=== PATIENT | male | born 1975 ===

== ENCOUNTER 2020-07-28 18:25 | Emergency (ER) | payer SELFPAY ==
[2020-07-28] MEDS ORDERED: Ibuprofen 600 MG Tab PO ONE (18:53)
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
== END 2020-07-28 19:33 | disposition home or self-care (01) ==
LOC: JP.ED 18:25
DX: S93.491A Sprain of other ligament of right ankle, initial encounter (principal); Z72.0 Tobacco use; Z79.82 Long term (current) use of aspirin; X50.1XXA Overexertion from prolonged static or awkward postures, initial encounter
CPT/HCPCS: 99284; A9270